=== PATIENT | male | born 1960 | race Caucasian/White ===

== ENCOUNTER 2016-07-25 09:23 | Day surgery (SDC) | payer MEDICARE, MEDICAID ==
[~2016-07-25 09:23] MED LIST: ADULT LOW DOSE81 M1 PO; AMBIEN10 M1 PO; AMITRIPTYLINE H10 M1 PO; AMLODIPINE BESYL5 MG PO; AMOXICILLIN PO; ARICEPT5 M1 PO; ASPIRIN EC81 MG PO; ASPIRIN325 M3 PO; ASPIRIN81 M1 PO; ATENOLOL50 M1 PO; AUGMENTIN600 MG/52 PO; C-PAP; CARAFATE1 G2 PO; CARAFATE1 GM/10 M1 PO; CLAVULANATE PO; COLACE100 M1 PO; DICLOFENAC SODI75 M2 PO; DIOVAN160 M1 PO; ECOTRIN325 M2 PO; FLAGYL500 M1 PO; FOLIC ACID1 M1 PO; HYDRALAZINE HCL10 M1 PO; HYDROCODON-ACE1 EA18 PO; HYDROXYZINE HCL50 M1 PO; ISOSORBIDE DINIT5 M2 PO; KLOR-CON 1010 ME1 PO; LEVAQUIN750 M1 PO; LOPERAMIDE2 M2 PO; MAGNESIUM400 M2 PO; MAGOX 400400 M1 PO; NICODERM CQ1 EAC1 TD; NICOTINE PATCH1 EAC1 TD; NORCO 10-325 T1 EACH PO; NORCO 5-325 TA1 EACH PO; NORCO 7.5-3251 EACH PO; NORVASC5 M2 PO; OMEPRAZOLE40 M2 PO; PERCOCET 5-3251 EACH PO; PHENERGAN PO; PLAVIX75 M1 PO; PREDNISONE10 M1 PO; PRILOSEC40 M1 PO; PROAIR HFA8.5 GM INH; PROMETHAZINE HC25 M3 PO; PROTONIX40 M2 PO; REQUIP2 M1 PO; SERTRALINE HCL25 M3 PO; SUPER B COMPLE150 M1 PO; SYMBICORT 160-1 PUFF IH; TENORMIN50 M1 PO; TYLENOL325 M2 PO; ULTRAM50 M1 PO; VALSARTAN HCTZ PO; VITAMIN B COMP1 EAC1 PO; WELCHOL625 M1 PO; ZANTAC150 M1 PO; ZITHROMAX250 M1 PO
[2016-07-25 10:26] LABS: BASO % 1.1 % (0-2); BASO ABSOLUTE COUNT 0.1 tho/cmm (0.0-0.2); EOS % 8.1 % (0-7); EOSINOPHIL ABSOLUTE COUNT 0.6 tho/cmm (0.0-0.7); HCT-HEMATOCRIT 46.6 % (36.0-53.5); HGB-HEMOGLOBIN 16.5 gm/dl (13.5-17.0); IMMATURE GRANULOCYTES ABSOLUTE 0.09 tho/cmm (0-0.03); IMMATURE GRANULOCYTES PERCENT 1.2 % (0-0.3); LYMPH % 11.4 % (20-45); LYMPH ABSOLUTE COUNT 0.9 tho/cmm (0.8-4.5); MCH (MEAN CORPUSCULAR HGB) 31.3 pg (28.0-32.0); MCHC MEAN CORPUSCULAR HGB CONC 35.4 % (32.0-36.0); MCV (MEAN CELL VOLUME) 88.3 fl (82.0-96.0); MEAN PLATELET VOLUME 9.5 cmc (9.4-12.4); MONO % 8.6 % (0-12); MONOCYTE ABSOLUTE COUNT 0.7 tho/cmm (0.0-1.2); NEUTROPHIL ABSOLUTE COUNT 5.3 tho/cmm (1.6-8.0); NEUTROPHIL-AUTOMATED 5.3 tho/cmm (1.6-8.0); NEUTROPHILS % 69.6 % (40-80); PLATELET COUNT 346 tho/cmm (150-450); RED BLOOD COUNT 5.28 mil/cmm (4.40-5.70); WHITE BLOOD COUNT 7.6 tho/cmm (4.0-10.0)
[2016-07-25 10:40] LABS: ANION GAP 12 mmol/L (0-20); BLOOD UREA NITROGEN 17 mg/dl (6-24); CALCIUM 9.1 mg/dl (8.5-10.5); CARBON DIOXIDE-VENOUS 25 mmol/L (22-32); CHLORIDE 101 mmol/l (96-110); CREATININE 1.02 mg/dl (0.60-1.30); GLUCOSE 86 mg/dL (70-110); POTASSIUM 4.7 mmol/L (3.7-5.1); SODIUM 133 mmol/L (135-145); eGFR VALUE FOR BLACK >90 mL/Min
== END 2016-07-25 12:40 ==
LOC: SRG 09:23 → SHSA 09:29
PROVIDERS: Anesthesiology
PROC: 0WPF0JZ Removal of Synthetic Substitute from Abdominal Wall, Open Approach (ICD-10-PCS; principal; 2016-07-25)
DX: T85.848A Pain due to other internal prosthetic devices, implants and grafts, initial encounter (principal); G89.29 Other chronic pain; I25.10 Atherosclerotic heart disease of native coronary artery without angina pectoris; I10 Essential (primary) hypertension; I73.00 Raynaud's syndrome without gangrene; F32.9 Major depressive disorder, single episode, unspecified; J44.9 Chronic obstructive pulmonary disease, unspecified; F17.210 Nicotine dependence, cigarettes, uncomplicated; G47.30 Sleep apnea, unspecified; K21.9 Gastro-esophageal reflux disease without esophagitis; Z79.899 Other long term (current) drug therapy; Z88.1 Allergy status to other antibiotic agents; Z88.8 Allergy status to other drugs, medicaments and biological substances; Z86.73 Personal history of transient ischemic attack (TIA), and cerebral infarction without residual deficits; Z98.52 Vasectomy status; Z98.890 Other specified postprocedural states
CPT/HCPCS: J0690